=== PATIENT | female | born 1990 | race Caucasian/White ===

== ENCOUNTER 2016-05-11 19:20 | Emergency (ER) | payer OTHER ==
[~2016-05-11] VITALS: Ht 162.6 cm; Wt 59.4 kg
[~2016-05-11 19:20] MED LIST: ALBINS/ INH; CITA40TA4 PO; DSY/150 PO; GDN40 PO; LEVO1TAB19 PO
[2016-05-11 19:25] VITALS: TEMP 37; Ht 162.6 cm; Wt 59.4 kg
[2016-05-11] MEDS ORDERED: SERT50TA PO (19:50)
[2016-05-11] MEDS ORDERED: OXYCODONE HCL IR 5 MG TAB (IMMEDIATE RELEASE) PO STA (20:08)
[2016-05-11] MEDS ORDERED: AMOXICILLIN 250 MG CAP PO STA (20:09)
[2016-05-11] MEDS ORDERED: AMOX500C3 PO (20:27)
--- NOTE | 2016-05-11 20:28 | EMERGENCY ROOM VISIT NOTE ---
ED Visit Note First contact with patient: 19:29 CHIEF COMPLAINT: Headache, sore throat, ear pain HISTORY OF PRESENT ILLNESS: This 26-year-old female presents to the emergency department ambulatory complaining of a right-sided headache, sore throat and her right ear popping. The patient reports that she has had the symptoms for the past several days. She states that she has pain in the right side of her mouth in the right side of her head. She rates the overall discomfort a 7/10. She reports associated nasal congestion. She has been taking ibuprofen and Tylenol without relief. She denies any neck pain/stiffness, chest pain, shortness of breath, cough, nausea or vomiting. She denies any fevers. REVIEW OF SYSTEMS: A 6 system review of systems was completed with positives and pertinent negatives listed in the HPI. ALLERGIES: Acetaminophen MEDICATIONS: See med list PMH:. Seasonal Allergies. SH: The patient lives locally with friends. She is a smoker. She denies alcohol use. PHYSICAL EXAM: Vital Signs: Reviewed Nurse's notes, temperature 37.0C orally. GENERAL: This is a 26-year-old female, in no acute distress, well-developed, well-nourished. SKIN: Normal. HEART: Regular rate and rhythm without murmurs gallops or rubs. LUNGS: Clear to auscultation and breath sounds equal, no wheezes, rales, or rhonchi. MOUTH: The pharynx is not inflamed and the tonsils are not enlarged. The airway is patent. EARS: The right tympanic membrane is mildly erythematous. The right external auditory canal is clear with no tragus tenderness. The left tympanic membrane is pearly crocker without erythema or effusion. The left external auditory canal is clear. LYMPH: There is no lymphadenopathy. NECK: Supple, no meningismus. ED COURSE: I examined the patient. Rapid strep swab was performed and was negative. She appears to have an early right otitis media. The patient will be placed on amoxicillin. She is complaining of right-sided headache which is likely secondary to the infection. She was given 1 tablet OxyIR here and instructed to take ibuprofen at home. The patient was instructed to follow-up with her primary care provider for further evaluation. She verbalized understanding and was discharged home in good condition. DIAGNOSIS: Acute otitis media of the right ear Problem List Medical Problems: (1) ADHD (attention deficit hyperactivity disorder) Status: Chronic (2) Asthma Status: Chronic Surgical Problems: (1) No pertinent past surgical history Status: Chronic Current/Historical Medications Scheduled Diphenhydramine Hcl (Allergy Relief), 25 MG PO DAILY Sertraline (Zoloft), 50 MG PO QAM Trazodone HCl (Trazodone HCl), 300 MG PO HS Scheduled PRN Albuterol Sulf (Proventil 0.083% 2.5MG/3ML), 2.5 MG INH Q4H PRN for Wheezing Ipratropium-Albuterol (Combivent Respimat), 2 PUFFS INH QID PRN for SOB/Wheezing Allergies Coded Allergies: Acetaminophen (Verified Allergy, Severe, HIVES/HARD TO BREATHE, 05/11/16) DOES NOT AFFECT HER IN COMBINATION MED LIKE PERCOCET. Vital Signs Date Time Temp Pulse Resp B/P Pulse Ox O2 Delivery O2 Flow Rate FiO2 05/11/16 19:27 97 Room Air 05/11/16 19:25 37.0 102 18 131/91 97 Room Air Medications Administered Medications (Trade) Dose Ordered Sig/Tom Route Start Time Stop Time Status Last Admin Dose Admin Oxycodone HCl (Roxicodone Immediate Rel Tab) 5 mg NOW STAT PO 05/11/16 20:08 05/11/16 20:10 DC 05/11/16 20:15 5 MG Amoxicillin (Amoxil Cap) 500 mg NOW STAT PO 05/11/16 20:09 05/11/16 20:11 DC 05/11/16 20:15 500 MG Departure Information Impression Primary Impression: Otitis media Dispostion Home / Self-Care Condition GOOD Prescriptions Amoxicillin (AMOXIL) 500 Mg Cap 1 CAP PO TID for 7 Days, #21 CAP Prov: Alyce Zapien PA-C 05/11/16 Referrals No Doctor, Assigned (PCP) Patient Instructions My [facility] Additional Instructions You have been treated in the Emergency Department for an Inner Ear Infection ( Otitis Media). You were prescribed amoxicillin to be taken 3 times daily as prescribed. This is an antibiotic. All antibiotics have the potential to cause diarrhea. Stop this medication and contact a medical provider if you were to develop any significant adverse side effects including: wheezing, shortness of breath, passing out, vomiting, or a diffuse rash. Always take antibiotics as directed and COMPLETE the ENTIRE course regardless of the improvement of your symptoms. For pain and fever control, you can use the following [id number] medicines (if >12 yo): - Regular strength (325mg/tab) Tylenol (acetaminophen) 2 tabs every 4-6 hours as needed. Do not exceed 12 tablets in a 24 hour period. Avoid taking more than 4 grams (4000 mg) of Tylenol per day. This includes any other sources of acetaminophen you may take on a regular basis. - Regular strength (200 mg/tab) Advil (ibuprofen) 1-2 tabs every 4-6 hours as needed. Do not exceed a dose of 3200 mg per day. You should follow-up with your Primary Care Provider from today's Emergency Department visit. Return to the emergency department if you develop the following symptoms despite treatment course outlined above: headache, fever, intractable pain, increased redness, swelling, or purulent discharge. Problem Qualifiers Primary Impression: Otitis media Otitis media type: unspecified Laterality: right Chronicity: unspecified Qualified Codes: H66.91 - Otitis media, unspecified, right ear
--- NOTE | 2016-05-11 20:35 | EMERGENCY ROOM VISIT NOTE ---
ED Visit Note First contact with patient: 19:29 I have seen and examined this patient with Alyce Zapien and generally agree with the treatment plan as discussed. Problem List Medical Problems: (1) ADHD (attention deficit hyperactivity disorder) Status: Chronic (2) Asthma Status: Chronic Surgical Problems: (1) No pertinent past surgical history Status: Chronic Current/Historical Medications Scheduled Amoxicillin (Amoxil), 1 CAP PO TID Diphenhydramine Hcl (Allergy Relief), 25 MG PO DAILY Sertraline (Zoloft), 50 MG PO QAM Trazodone HCl (Trazodone HCl), 300 MG PO HS Scheduled PRN Albuterol Sulf (Proventil 0.083% 2.5MG/3ML), 2.5 MG INH Q4H PRN for Wheezing Ipratropium-Albuterol (Combivent Respimat), 2 PUFFS INH QID PRN for SOB/Wheezing Allergies Coded Allergies: Acetaminophen (Verified Allergy, Severe, HIVES/HARD TO BREATHE, 05/11/16) DOES NOT AFFECT HER IN COMBINATION MED LIKE PERCOCET. Vital Signs Date Time Temp Pulse Resp B/P Pulse Ox O2 Delivery O2 Flow Rate FiO2 05/11/16 19:27 97 Room Air 05/11/16 19:25 37.0 102 18 131/91 97 Room Air Medications Administered Medications (Trade) Dose Ordered Sig/Tom Route Start Time Stop Time Status Last Admin Dose Admin Oxycodone HCl (Roxicodone Immediate Rel Tab) 5 mg NOW STAT PO 05/11/16 20:08 05/11/16 20:10 DC 05/11/16 20:15 5 MG Amoxicillin (Amoxil Cap) 500 mg NOW STAT PO 05/11/16 20:09 05/11/16 20:11 DC 05/11/16 20:15 500 MG Departure Information Impression Primary Impression: Otitis media Dispostion Home / Self-Care Condition GOOD Prescriptions Amoxicillin (AMOXIL) 500 Mg Cap 1 CAP PO TID for 7 Days, #21 CAP Prov: Alyce Zapien ., JOEY 05/11/16 Referrals No Doctor, Assigned (PCP) Forms HOME CARE DOCUMENTATION FORM, IMPORTANT VISIT INFORMATION Patient Instructions My [facility] Additional Instructions You have been treated in the Emergency Department for an Inner Ear Infection ( Otitis Media). You were prescribed amoxicillin to be taken 3 times daily as prescribed. This is an antibiotic. All antibiotics have the potential to cause diarrhea. Stop this medication and contact a medical provider if you were to develop any significant adverse side effects including: wheezing, shortness of breath, passing out, vomiting, or a diffuse rash. Always take antibiotics as directed and COMPLETE the ENTIRE course regardless of the improvement of your symptoms. For pain and fever control, you can use the following [id number] medicines (if >12 yo): - Regular strength (325mg/tab) Tylenol (acetaminophen) 2 tabs every 4-6 hours as needed. Do not exceed 12 tablets in a 24 hour period. Avoid taking more than 4 grams (4000 mg) of Tylenol per day. This includes any other sources of acetaminophen you may take on a regular basis. - Regular strength (200 mg/tab) Advil (ibuprofen) 1-2 tabs every 4-6 hours as needed. Do not exceed a dose of 3200 mg per day. You should follow-up with your Primary Care Provider from today's Emergency Department visit. Return to the emergency department if you develop the following symptoms despite treatment course outlined above: headache, fever, intractable pain, increased redness, swelling, or purulent discharge.
[2016-05-11 20:39] VITALS: BP 121/97; PULSE 78; O2SAT 98
[2016-09-14] MEDS ORDERED: VENL37.593 PO (16:09)
[2016-09-14] MEDS ORDERED: ATOM40CA5 PO (16:09)
== END 2016-05-11 20:34 | disposition home or self-care (01) ==
LOC: C.EDB 19:21 → C.EDD 20:34
DX: H66.91 Otitis media, unspecified, right ear (principal); F90.9 Attention-deficit hyperactivity disorder, unspecified type; J45.909 Unspecified asthma, uncomplicated; F17.200 Nicotine dependence, unspecified, uncomplicated; Z88.6 Allergy status to analgesic agent; Z79.899 Other long term (current) drug therapy

== ENCOUNTER 2016-09-17 15:54 | Emergency (ER) | payer OTHER ==
[~2016-09-17] VITALS: Ht 160 cm; Wt 55.0 kg
[~2016-09-17 15:54] MED LIST changes: +ATOM40CA5 PO; -CITA40TA4 PO; -GDN40 PO; -LEVO1TAB19 PO; +SERT50TA PO; +VENL37.593 PO
[2016-09-17 16:02] VITALS: Ht 160 cm; Wt 55.0 kg
[2016-09-17] MEDS ORDERED: KETOROLAC TROMETHAMINE 60 MG/2 ML VIAL IM STA (16:19)
[2016-09-17] MEDS ORDERED: CTF50 PO (16:26)
--- NOTE | 2016-09-17 16:32 | EMERGENCY ROOM VISIT NOTE ---
ED Visit Note First contact with patient: 16:04 CHIEF COMPLAINT: bilateral facial pain/dental pain, chronic right knee pain HISTORY OF PRESENT ILLNESS: This 6-year-old female patient presented to the emergency department alone with a progressive toothache for the past week. The patient believes it is coming from all of her teeth. The pain is now steady and severe and radiates to the face. Patient reports feeling that her teeth are clicking while chewing or topping on them. She states she has been able to eat soft foods, however hard foods make the pain worse. Patient does report headache. She states she only gets relief from pain while sleeping. The patient does not have a dentist appointment set up because she is unable to pay $46 required by the dentist her. Patient states she did call a dentist earlier this week, however was unable to come up with the money. They rate their pain as constant and an 8/10 and the ibuprofen and other OTC pain medications they have been taking has not relieved the pain. Denies facial swelling or fever. The patient denies any discharge from the mouth. Patient also reports chronic right knee pain, which she states is "acting up." Patient denies recent injury, fall, twisting, other precipitating factor. She states this pain has been going on for several years, which began when her knee "popped out of place" she worked for the [employer]. Patient states the pain hurts when she bends it, especially while sitting, however she continues to this motion consistently and is sitting in the way in the emergency department. Patient states when she standing, she feels the pain gets worse, and states it throbs while walking. She states pain also is worse on palpation. She rates this pain as 6/10 sharp, however states that only occurs occasionally and lasts for a few minutes at most. Patient denies redness, swelling. REVIEW OF SYSTEMS: A 6 system review of systems was completed with positives and pertinent negatives listed in the HPI. ALLERGIES: Acetaminophen MEDICATIONS: Effexor, albuterol, Combivent, Benadryl, trazodone, sertraline PMH: Anxiety, depression, seasonal allergies and asthma SOCIAL HISTORY: Patient lives locally with her family. She reports smoking 1 pack per day. Patient denies alcohol or drug use. PHYSICAL EXAM: Vitals are noted on the nurse's note and reviewed by myself. Vital signs stable. Temperature 36.8C orally. GENERAL: 26-year-old female, in no acute distress, appears to be sitting comfortably on the bed, nondiaphoretic, well-developed well-nourished. Mouth: Pt. does not have any molars in her mouth. All other teeth are very carious, however, the gum is not swollen, but is tender around it, without any discharge or signs of an abscess. The remainder of the pharynx and tonsils are without erythema, edema, or exudate. The airway is patent. There is no facial swelling, cervical or submandibular lymphadenopathy. The patient has overall very poor dental hygiene. EARS: External auditory canals clear, tympanic membranes pearly crocker without erythema or effusion bilaterally. MUSCULOSKELETAL: The right knee is not swollen. There is no ecchymosis. There is no joint effusion present. The patient is tender on palpation of the entire knee. Unable to locate specific point of tenderness. There is no specific joint line tenderness. The patella does subluxate. Range of motion is normal. Strength of the quads and hamstrings is 5/5. Antonietta's is negative. Bryson's and Anterior Drawer tests are negative , however patient complains of pain with these tests. There is discomfort with varus and valgus stressing. The foot and toes are warm and well-perfused. Dorsalis pedis pulse 2+. Sensation to pain and light touch is intact. Capillary refill less than 2 seconds. ED COURSE: Pt. was seen and evaluated as above. Discussion with patient regarding the importance of seeing a dentist. I also discussed with the patient importance of having a PCP to discuss chronic problems with. Patient was provided with 60 mg Toradol IM in the emergency department with moderate relief of pain. Discussion with patient regarding pain management. I also discussed with the patient benefits of x-ray of right knee. I discussed with her about with no new injury, it is unlikely x-rays which show anything which would change the course of care. Patient declines x-ray at this time. She states she will follow-up with a PCP regarding chronic knee pain. Patient was discharged home in good condition. DIAGNOSIS: Odontalgia, chronic right knee pain DIFFERENTIAL DIAGNOSIS: dental abscess, TMJ, Acute sinusitis, Acute otitis media , meniscal tear, ACL, PCL, LCL, MCL injury or tear, osteoarthritis, and others. DISCHARGE INSTRUCTIONS & TREATMENT: You have been treated in the Emergency Department for Dental Pain and knee pain You have been prescribed diclofenac to be used for pain control. Do not take this medication with any other NSAIDs including Aleve, ibuprofen, naproxen, Motrin, Advil. Refrain from smoking cigarettes or using chewing tobacco until you have been evaluated by your dentist. Keeping beverages lukewarm and consuming soft foods can decrease your pain. Warm compresses over the affected area may offer some relief. You MUST seek evaluation of your dental pain by a dentist following your visit to the Emergency Department. The Emergency Department is not capable of treating dental issues long-term. You should call your dentist as soon as possible to make an appointment for evaluation of your dental pain. Return to the emergency department if you develop the following symptoms despite treatment course outlined above: fever, intractable pain, increased redness, swelling, or purulent discharge. You have been treated in the Emergency Department for your chronic knee pain: Ice can be applied to the area of pain to help decrease pain and inflammation. Ice massages can be performed by freezing water in a paper cup, peeling back the cup to expose the ice and then massaging over the affected area. You may use fish oil tablets, 2000 mg twice daily to help lubricate the joint and attempt to offer some pain relief. You have been provided the number for an Orthopaedic Surgeon. You should call this number, or follow-up with a PCP as soon as possible to establish a follow- up visit from today's Emergency Department visit. Return to the Emergency Department if your current symptoms worsen despite treatment course outlined above. Problem List Medical Problems: (1) ADHD (attention deficit hyperactivity disorder) Status: Chronic (2) Asthma Status: Chronic Surgical Problems: (1) No pertinent past surgical history Status: Chronic Current/Historical Medications Scheduled Atomoxetine HCl (Atomoxetine), 1 CAP PO QAM Diphenhydramine Hcl (Allergy Relief), 25 MG PO DAILY Sertraline (Zoloft), 50 MG PO QAM Trazodone HCl (Trazodone HCl), 300 MG PO HS Venlafaxine Hcl (Venlafaxine Extended Rel), 1 CAP PO QAM Scheduled PRN Albuterol Sulf (Proventil 0.083% 2.5MG/3ML), 2.5 MG INH Q4H PRN for Wheezing Diclofenac Potassium (Diclofenac Potassium), 1 TAB PO BID PRN for Pain Ipratropium-Albuterol (Combivent Respimat), 2 PUFFS INH QID PRN for SOB/Wheezing Allergies Coded Allergies: Acetaminophen (Verified Allergy, Severe, HIVES/HARD TO BREATHE, 09/17/16) DOES NOT AFFECT HER IN COMBINATION MED LIKE PERCOCET. Vital Signs Date Time Temp Pulse Resp B/P (MAP) Pulse Ox O2 Delivery O2 Flow Rate FiO2 09/17/16 16:56 36.8 73 18 128/88 99 09/17/16 16:02 36.8 73 18 128/88 99 Room Air Medications Administered Medications (Trade) Dose Ordered Sig/Tom Route Start Time Stop Time Status Last Admin Dose Admin Ketorolac Tromethamine (Toradol Inj) 60 mg NOW STAT IM 09/17/16 16:19 09/17/16 16:20 DC 09/17/16 16:38 60 MG Departure Information Impression Primary Impression: Pain, dental Additional Impression: Chronic pain of right knee Dispostion Home / Self-Care Condition GOOD Prescriptions Diclofenac Potassium (DICLOFENAC POTASSIUM) 50 Mg Tab 1 TAB PO BID Y for Pain for 30 Days, #60 TAB 1 Refill Prov: Yoly Ceja, JOEY 09/17/16 Referrals No Doctor, Assigned (PCP) Jose Motley M.D. Patient Instructions ED Knee Pain [facility], ED Tooth Pain, [facility] Additional Instructions You have been treated in the Emergency Department for Dental Pain and knee pain You have been prescribed diclofenac to be used for pain control. Do not take this medication with any other NSAIDs including Aleve, ibuprofen, naproxen, Motrin, Advil. Refrain from smoking cigarettes or using chewing tobacco until you have been evaluated by your dentist. Keeping beverages lukewarm and consuming soft foods can decrease your pain. Warm compresses over the affected area may offer some relief. You MUST seek evaluation of your dental pain by a dentist following your visit to the Emergency Department. The Emergency Department is not capable of treating dental issues long-term. You should call your dentist as soon as possible to make an appointment for evaluation of your dental pain. Return to the emergency department if you develop the following symptoms despite treatment course outlined above: fever, intractable pain, increased redness, swelling, or purulent discharge. You have been treated in the Emergency Department for your chronic knee pain: Ice can be applied to the area of pain to help decrease pain and inflammation. Ice massages can be performed by freezing water in a paper cup, peeling back the cup to expose the ice and then massaging over the affected area. You may use fish oil tablets, 2000 mg twice daily to help lubricate the joint and attempt to offer some pain relief. You have been provided the number for an Orthopaedic Surgeon. You should call this number, or follow-up with a PCP as soon as possible to establish a follow- up visit from today's Emergency Department visit. Return to the Emergency Department if your current symptoms worsen despite treatment course outlined above. Problem Qualifiers
[2016-09-17 16:56] VITALS: BP 128/88; PULSE 73; TEMP 36.8; O2SAT 99
== END 2016-09-17 16:57 | disposition home or self-care (01) ==
LOC: C.EDB 15:55 → C.EDD 16:57
DX: K08.89 Other specified disorders of teeth and supporting structures (principal); G89.29 Other chronic pain; M25.561 Pain in right knee; F90.9 Attention-deficit hyperactivity disorder, unspecified type; F41.9 Anxiety disorder, unspecified; F32.9 Major depressive disorder, single episode, unspecified; J45.909 Unspecified asthma, uncomplicated; F17.200 Nicotine dependence, unspecified, uncomplicated; Z79.899 Other long term (current) drug therapy; Z88.6 Allergy status to analgesic agent

== ENCOUNTER 2016-10-04 21:31 | Emergency (ER) | payer OTHER ==
[~2016-10-04] VITALS: Ht 162.6 cm; Wt 54.3 kg
[~2016-10-04 21:31] MED LIST changes: +CTF50 PO
[2016-10-04 21:32] VITALS: TEMP 36.8; Ht 162.6 cm; Wt 54.3 kg
[2016-10-04] MEDS ORDERED: SODIUM CHLORIDE 0.9% 1000ML 1,000 ML IV STA (22:28)
[2016-10-04] MEDS ORDERED: SODIUM CHLORIDE 0.9% 1000ML 1,000 ML IV ONE (22:28)
[2016-10-04] MEDS ORDERED: KETOROLAC TROMETHAMINE 30 MG/ML VIAL IV STA (22:28)
--- NOTE | 2016-10-04 22:29 | EMERGENCY ROOM VISIT NOTE ---
History Report prepared by Chester: Susan Ch Under the Supervision of: Dr. Kaushik Combs M.D. First contact with patient: 21:51 Chief Complaint: ABDOMINAL PAIN Stated Complaint: CHEST PAIN Nursing Triage Summary: Pain right upper abdomen, radiates to right ribs/shoulders, "chest feels like it's going to explode". Has not been eating since yesterday when symptoms started. Has been having problems eating for weeks. No dysuria or bowel irregularities. History of Present Illness The patient is a 26 year old female who presents to the Emergency Room with complaints of constant RUQ abdominal pain and tightness beginning yesterday. The patient states that she is having RUQ abdominal pain under her breast that radiates into her right shoulder. She reports that she has been feeling lightheaded and heaviness in the right side of her body. She complains of chills and feeling hot. The patient denies any fever, shortness of breath, injury, urinary symptoms, nausea, vomiting, bloody stool, black stool, and chance of . She notes that her LNMP was 1 month ago and she took a test and it was negative. The patient rates her pain as an 8/10 in severity. She notes that laying on her right side worsens the pain. The patient states that she had epigastric tightness 1 month ago but has not had an episode since. She reports that she did lift a couch the other day and is wondering if that is the cause of her right sided heaviness. She notes that she has asthma and has been wheezing lately. Source of History: patient Onset: yesterday Position: abdomen (RUQ) Quality: other (tightness) Timing: constant Modifying Factors (Worsening): other (laying on right side) Associated Symptoms: + chills, No fevers, No SOB, No nausea, No vomiting, No melena, No urinary symptoms, No rash Review of Systems See HPI for pertinent positives & negatives. A total of 10 systems reviewed and were otherwise negative. Past Medical & Surgical Medical Problems: (1) ADHD (attention deficit hyperactivity disorder) (2) Asthma (3) SOB (shortness of breath) Surgical Problems: (1) No pertinent past surgical history Old medical records were reviewed. Nurse's notes were reviewed and I agree with. Family History Glaucoma Social History Smoking Status: Current Every Day Smoker Alcohol Use: none Drug Use: none Marital Status: single Housing Status: lives with friends Occupation Status: unemployed Current/Historical Medications Scheduled Atomoxetine HCl (Atomoxetine), 1 CAP PO QAM Diphenhydramine Hcl (Allergy Relief), 25 MG PO DAILY Sertraline (Zoloft), 50 MG PO QAM Trazodone HCl (Trazodone HCl), 300 MG PO HS Venlafaxine Hcl (Venlafaxine Extended Rel), 1 CAP PO QAM Scheduled PRN Albuterol Sulf (Proventil 0.083% 2.5MG/3ML), 2.5 MG INH Q4H PRN for Wheezing Diclofenac Potassium (Diclofenac Potassium), 1 TAB PO BID PRN for Pain Ipratropium-Albuterol (Combivent Respimat), 2 PUFFS INH QID PRN for SOB/Wheezing Oxycodone Immediate Rel Tab (Roxicodone Ir), 1 TAB PO Q6 PRN for Severe Pain Allergies Coded Allergies: Acetaminophen (Verified Allergy, Severe, HIVES/HARD TO BREATHE, 10/04/16) DOES NOT AFFECT HER IN COMBINATION MED LIKE PERCOCET. Physical Exam Vital Signs Date Time Temp Pulse Resp B/P (MAP) Pulse Ox O2 Delivery O2 Flow Rate FiO2 10/05/16 00:44 65 20 114/86 98 10/04/16 21:32 36.8 76 18 141/82 98 Room Air Physical Exam General: Well developed well nourished non-ill appearing young female in no acute distress, breathing comfortably on room air. Normal speech HEENT: Normal cephalic atraumatic. Pupils are equal round and reactive to light. Extraocular movements are intact. Oropharynx is pink with moist mucous membranes. No swelling of the mouth lips or tongue. Neck: Supple with a midline trachea. No meningeal signs or stiffness, no JVD or bruits. No Stridor. Chest: Clear to auscultation bilaterally. No wheezes or rhonchi. No increased work of breathing. Heart: regular rate and rhythm. Abdomen: Soft, nondistended without rebound guarding or rigidity. Mildly tender in the right lower rib cage, right upper abdomen. No rebound, guarding, or rigidity no lower abdominal tenderness. Extremities: No cyanosis clubbing or edema. No calf tenderness or assymetry Spine/Back. Non tender to palpation. No CVA tenderness Skin: Good turgor without rashes. Neurologic exam: Cranial nerves two through 12 are intact. Motor and sensation are intact and symmetrical throughout. Medical Decision & Procedures ER Provider Diagnostic Interpretation: Radiology results as stated below per my review: Chest x-ray per my interpretation reveals no pneumothorax, failure, or infiltrate. Laboratory Results 10/04/16 22:50 Red Blood Count 4.91, Mean Corpuscular Volume 92.3, Mean Corpuscular Hemoglobin 32.6, Mean Corpuscular Hemoglobin Concent 35.3, Mean Platelet Volume 11.0, Neutrophils (%) (Auto) 65.2, Lymphocytes (%) (Auto) 26.4, Monocytes (%) (Auto) 6.6, Eosinophils (%) (Auto) 1.3, Basophils (%) (Auto) 0.3, Neutrophils # (Auto) 6.70, Lymphocytes # (Auto) 2.71, Monocytes # (Auto) 0.68, Eosinophils # (Auto) 0.13, Basophils # (Auto) 0.03 10/04/16 22:50 Test 10/04/16 21:55 10/04/16 22:50 Urine Color YELLOW Urine Appearance CLEAR (CLEAR) Urine pH 6.5 (4.5-7.5) Urine Specific [place] 1.005 (1.000-1.030) Urine Protein NEG (NEG) Urine Glucose (UA) NEG (NEG) Urine Ketones NEG (NEG) Urine Occult Blood NEG (NEG) Urine Nitrite NEG (NEG) Urine Bilirubin NEG (NEG) Urine Urobilinogen NEG (NEG) Urine Leukocyte Esterase NEG (NEG) White Blood Count 10.27 K/uL (4.8-10.8) Red Blood Count 4.91 M/uL (4.2-5.4) Hemoglobin 16.0 g/dL (12.0-16.0) Hematocrit 45.3 % (37-47) Mean Corpuscular Volume 92.3 fL (80-100) Mean Corpuscular Hemoglobin 32.6 pg (25-34) Mean Corpuscular Hemoglobin Concent 35.3 g/dl (32-36) Platelet Count 293 K/uL (130-400) Mean Platelet Volume 11.0 fL (7.4-10.4) Neutrophils (%) (Auto) 65.2 % Lymphocytes (%) (Auto) 26.4 % Monocytes (%) (Auto) 6.6 % Eosinophils (%) (Auto) 1.3 % Basophils (%) (Auto) 0.3 % Neutrophils # (Auto) 6.70 K/uL (1.4-6.5) Lymphocytes # (Auto) 2.71 K/uL (1.2-3.4) Monocytes # (Auto) 0.68 K/uL (0.11-0.59) Eosinophils # (Auto) 0.13 K/uL (0-0.5) Basophils # (Auto) 0.03 K/uL (0-0.2) RDW Standard Deviation 43.5 fL (36.4-46.3) RDW Coefficient of Variation 12.9 % (11.5-14.5) Immature Granulocyte % (Auto) 0.2 % Immature Granulocyte # (Auto) 0.02 K/uL (0.00-0.02) Anion Gap 8.0 mmol/L (3-11) Est Creatinine Clear Calc Drug Dose 91.0 ml/min Estimated GFR () 117.0 Estimated GFR (Non- 100.9 BUN/Creatinine Ratio 6.2 (10-20) Calcium Level 9.7 mg/dl (8.5-10.1) Total Bilirubin 0.3 mg/dl (0.2-1) Direct Bilirubin < 0.1 mg/dl (0-0.2) Aspartate Amino Transf (AST/SGOT) 12 U/L (15-37) Alanine Aminotransferase (ALT/SGPT) 22 U/L (12-78) Alkaline Phosphatase 58 U/L (45-117) Total Protein 8.3 gm/dl (6.4-8.2) Albumin 5.0 gm/dl (3.4-5.0) Lipase 142 U/L (73-393) Human Chorionic Gonadotropin, Qual NEG (NEG) Laboratory studies as stated above per my review. Medications Administered Medications (Trade) Dose Ordered Sig/Tom Route Start Time Stop Time Status Last Admin Dose Admin Sodium Chloride 1,000 ml @ 999 mls/hr Q1H1M STAT IV 10/04/16 22:28 10/04/16 23:28 DC 10/04/16 22:56 999 MLS/HR Sodium Chloride 1,000 ml @ 150 mls/hr Q6H40M ONCE IV 10/04/16 22:28 10/05/16 05:07 10/04/16 23:07 150 MLS/HR Ketorolac Tromethamine (Toradol Inj) 30 mg NOW STAT IV 10/04/16 22:28 10/04/16 22:30 DC 10/04/16 22:56 30 MG Oxycodone HCl (Roxicodone Immediate Rel 5MG Home Pack) 1 homepack UD ONCE PO 10/05/16 00:30 10/05/16 00:31 DC 10/05/16 00:42 1 HOMEPACK ECG Indication: abdominal pain Rate (beats per minute): 68 Rhythm: normal sinus Findings: no acute ischemic change, no ectopy Comparison ECG Date: 01/12/16 Change: no significant change ED Course 2150: Past medical records reviewed. The patient was evaluated in room B12B, and a complete history and physical examination were performed. 2228: Toradol Inj 30mg IV, Sodium Chloride 1000 ml @ 150 mls/hr IV, Sodium Chloride 1000 ml @ 999 mls/hr IV. 2327: I reevaluated the patient and she is resting comfortably. 0017: I reevaluated and updated the patient. 0029: I spoke to the patient and she would like to be discharged without her ultrasound. I think this is reasonable. 0030: Oxycodone HCl 1 homepack PO. 0032: Upon reevaluation, the patient is doing well. I discussed the results and treatment plan with the patient. She verbalized agreement of the treatment plan. The patient was discharged home. Medical Decision Differential diagnosis includes cholecystitis, pancreatitis, GERD, PE, . This patient comes in as described above. She was placed in room B12. She's having pain in her right upper abdomen right lower chest. She looks well on exam . She's not hypoxemic. She has no rash. Chest x-ray was obtained and does not show any pneumothorax or CHF. EKG does not suggest acute coronary syndrome or arrhythmia. She's had no white count or fever to suggest infection. She has no acute electrolyte or metabolic abnormality. She is not . She was given Toradol 30 mg IV. She is feeling much better. EKG does not suggest acute coronary syndrome. Her cardiac enzymes are not elevated. D-dimer is within normal limits and and a low pretest probability makes PE highly unlikely . She has no acute electrolyte or metabolic abnormalities. She has nothing to suggest liver or gallbladder pancreas disease based on blood work. Her tenderness is actually more along the ribs and I do not think is likely gallbladder . I did order an ultrasound however the patient wanted to go home as she was tired of waiting here, I think this is reasonable and is on think that it is unlikely acute cholecystitis or gallbladder causing her symptoms. She was given a home pack of OxyIR as well as a small prescription for pain. She was warned that this can make her drowsy and do not take before drinking, driving, working. I encouraged to follow-up with her regular doctor this week for recheck or return in the meantime if fever or chills, worsening of symptoms, any new problems or concerns. Medication Reconciliation: I attest that I have personally reviewed the patient' s current medication list. Blood pressure Screening: Patient was found to have normal blood pressure on screening and does not require follow-up. [place] Drug Monitoring Program Search Results: patient reviewed within database Impression Primary Impression: RUQ abdominal pain Additional Impression: Right-sided chest pain Scribe Attestation The scribe's documentation has been prepared under my direction and personally reviewed by me in its entirety. I confirm that the note above accurately reflects all work, treatment, procedures, and medical decision making performed by me. Departure Information Dispostion Home / Self-Care Prescriptions Oxycodone Immediate Rel Tab (ROXICODONE IR) 5 Mg Tab 1 TAB PO Q6 Y for Severe Pain, #14 TAB Prov: Kaushik Combs M.D. 10/05/16 Referrals No Doctor, Assigned (PCP) Forms HOME CARE DOCUMENTATION FORM, IMPORTANT VISIT INFORMATION Patient Instructions [facility] Additional Instructions Rest. Drink plenty of fluids. Continue use ibuprofen 400 mg every 6 hours, take with food For more severe pain may use OxyIR 5 mg, 1 pill every 6 hours as needed OxyIR may make you drowsy do not take before drinking, driving, working Return if: Increasing pain, worsening of symptoms, fever or chills, any new problems or concerns Follow-up with your doctor in next 1-2 days for recheck if not better. You may ultimately ultrasound her gallbladder symptoms persist or worsen Problem Qualifiers
[2016-10-04 23:00] LABS: BASO % 0.3 %; BASO ABS # 0.03 K/uL (0-0.2); COMPLETE YES; EOS % 1.3 %; HEMATOCRIT 45.3 % (37-47); IG% 0.2 %; LYMPH % 26.4 %; LYMPH ABS # 2.71 K/uL (1.2-3.4); MEAN CELL VOLUME 92.3 fL (80-100); MEAN CORPUSCULAR HEMOGLOBIN 32.6 pg (25-34); MEAN CORPUSCULAR HGB CONC 35.3 g/dl (32-36); MONO % 6.6 %; NEUT % 65.2 %; PLATELET COUNT 293 K/uL (130-400); RED BLOOD COUNT 4.91 M/uL (4.2-5.4); WHITE BLOOD COUNT 10.27 K/uL (4.8-10.8)
[2016-10-04 23:20] LABS: ALT/SGPT 22 U/L (12-78); AST/SGOT 12 U/L (15-37); BLOOD UREA NITROGEN 5 mg/dl (7-18); BUN/CREATININE RATIO 6.2 (10-20); CALCIUM 9.7 mg/dl (8.5-10.1); CARBON DIOXIDE 27 mmol/L (21-32); CHLORIDE 105 mmol/L (98-107); CREATININE 0.81 mg/dl (0.60-1.20); GLUCOSE 96 mg/dl (70-99); POTASSIUM 3.6 mmol/L (3.5-5.1); SODIUM 140 mmol/L (136-145)
[2016-10-04 23:23] LABS: ALKALINE PHOSPHATASE 58 U/L (45-117)
[2016-10-04 23:24] LABS: PREG INTERNAL NEGATIVE QC NEG CLEAR BACKGROUND; PREG INTERNAL POSITIVE QC POS CONTROL LINE
[2016-10-04 23:33] LABS: URINE APPEARANCE CLEAR (CLEAR); URINE BILIRUBIN NEG (NEG); URINE COLOR YELLOW; URINE NITRITE NEG (NEG); URINE PH 6.5 (4.5-7.5); URINE SPECIFIC GRAVITY 1.005 (1.000-1.030); UROBILINOGEN NEG (NEG)
[2016-10-04 23:39] LABS: MANUAL MICROSCOPIC REQUIRED? NO; REVIEW REQ? NO
[2016-10-05] MEDS ORDERED: OXYC1TAB3 PO (00:26)
[2016-10-05] MEDS ORDERED: OXYCODONE IR HOME PACK PO ONE (00:30)
[2016-10-05 00:44] VITALS: BP 114/86; PULSE 65; O2SAT 98
--- NOTE | 2016-10-05 06:35 | DIAGNOSTIC IMAGING REPORT ---
CHEST ONE VIEW PORTABLE HISTORY:26 yearsFemaleCHEST PAIN COMPARISON: 01/14/2016 TECHNIQUE: Portable upright AP view of the chest FINDINGS: Cardiomediastinal and hilar silhouettes are within normal limits there is no pneumothorax, pleural effusion or focal airspace consolidation. The bones are grossly intact. IMPRESSION: No acute cardiopulmonary process. The above report was generated using voice recognition software. It may contain grammatical, syntax or spelling errors. Electronically signed by: Yaw Peck 10/05/2016 6:34 AM Dictated Date/Time: 10/05/2016 6:32 AM
[2016-10-05 10:54] LABS: POINT OF CARE TROPONIN I < 0.030 ng/ml (0-0.045)
== END 2016-10-05 00:45 | disposition home or self-care (01) ==
LOC: C.EDB 21:32
DX: R10.11 Right upper quadrant pain (principal); R07.9 Chest pain, unspecified; R42 Dizziness and giddiness; F90.9 Attention-deficit hyperactivity disorder, unspecified type; J45.909 Unspecified asthma, uncomplicated; F17.210 Nicotine dependence, cigarettes, uncomplicated; Z79.899 Other long term (current) drug therapy

== ENCOUNTER 2016-10-18 21:49 | Emergency (ER) | payer OTHER ==
[~2016-10-18] VITALS: Ht 162.6 cm; Wt 55.7 kg
[~2016-10-18 21:49] MED LIST changes: +OXYC1TAB3 PO
[2016-10-18 22:04] VITALS: TEMP 36.8; Ht 162.6 cm; Wt 55.7 kg
[2016-10-18] MEDS ORDERED: DICLOFENAC SOD 25 MG TABEC PO STA (22:29)
[2016-10-18] MEDS ORDERED: PENICILLIN V POTASSIUM 250 MG TAB PO ONE (22:30)
--- NOTE | 2016-10-18 22:34 | EMERGENCY ROOM VISIT NOTE ---
History Report prepared by Chester: Ben Lizarraga Under the Supervision of: Dr. Mk Patterson M.D. First contact with patient: 22:20 Chief Complaint: ANKLE PAIN Stated Complaint: ANKLE,R KNEE, DENTAL, SOME EATING PROBLEMS History of Present Illness The patient is a 26 year old female who presents to the Emergency Room with complaints of persistent pain in the right ankle, after "rolling" the ankle on Wednesday, two days prior to arrival. The patient states that she was walking down a hill when she twisted and inverted the ankle. Her ankle and foot hurt now when weight is applied. She is also complaining of pain and tightness in the right knee. The patient complains of worsening dental pain across multiple teeth. She notes that her gums are red and painful. She is waiting until November to see her dentist due to insurance coverage. Source of History: patient Onset: Two days [employer] Position: ankle (right) Timing: other (Persistent) Modifying Factors (Worsening): other (applying weight) Note: Dental Pain Review of Systems See HPI for pertinent positives & negatives. A total of 10 systems reviewed and were otherwise negative. Past Medical & Surgical Medical Problems: (1) ADHD (attention deficit hyperactivity disorder) (2) Asthma (3) SOB (shortness of breath) Surgical Problems: (1) No pertinent past surgical history Family History Glaucoma Social History Smoking Status: Current Every Day Smoker Alcohol Use: none Drug Use: none Marital Status: single Housing Status: lives with friends Occupation Status: unemployed Current/Historical Medications Scheduled Atomoxetine HCl (Atomoxetine), 1 CAP PO QAM Diclofenac Sod (Voltaren), 1 TAB PO BID Diphenhydramine Hcl (Allergy Relief), 25 MG PO DAILY Penicillin V Potassium (Veetids), 500 MG PO QID Sertraline (Zoloft), 50 MG PO QAM Trazodone HCl (Trazodone HCl), 300 MG PO HS Venlafaxine Hcl (Venlafaxine Extended Rel), 1 CAP PO QAM Scheduled PRN Albuterol Sulf (Proventil 0.083% 2.5MG/3ML), 2.5 MG INH Q4H PRN for Wheezing Diclofenac (Voltaren), 50 MG PO BID PRN for Pain Ipratropium-Albuterol (Combivent Respimat), 2 PUFFS INH QID PRN for SOB/Wheezing Oxycodone Immediate Rel Tab (Roxicodone Ir), 5 MG PO Q6H PRN for Pain Allergies Coded Allergies: Acetaminophen (Verified Allergy, Severe, HIVES/HARD TO BREATHE, 10/18/16) DOES NOT AFFECT HER IN COMBINATION MED LIKE PERCOCET. Physical Exam Vital Signs Date Time Temp Pulse Resp B/P (MAP) Pulse Ox O2 Delivery O2 Flow Rate FiO2 10/18/16 22:04 36.8 80 18 129/82 99 Room Air Physical Exam GENERAL: Patient is in no acute distress. HEENT: No acute trauma, normocephalic atraumatic, mucous membranes moist, no nasal congestion, no scleral icterus. Poor dentition appreciated. Multiple dental caries are present, no drainable abscesses. No throat erythema or exudate. NECK: No stridor, no adenopathy, no meningismus, trachea is midline. LUNGS: Clear to auscultation bilaterally, no wheeze, no rhonchi, breath sounds equal. HEART: Without murmurs gallops or rubs, regular rate and rhythm. ABDOMEN: Soft, nontender, bowel sounds positive, no hernias, no peritonitis. EXTREMITIES: There is mild tenderness over the ligaments of the lateral right ankle. The bones are non-tender, the right Achilles is non-tender and intact. There is no soft tissue swelling, right foot is non-tender. Right knee has some mild discomfort with ROM. No focal bony tenderness to the knee. No right knee joint effusion. NEUROLOGIC: Oriented x 3, no acute motor or sensory deficits, no focal weakness. SKIN: No rash, no jaundice, no diaphoresis. Medical Decision & Procedures Medications Administered Medications (Trade) Dose Ordered Sig/Tom Route Start Time Stop Time Status Last Admin Dose Admin Diclofenac Sodium (Voltaren Tab) 50 mg NOW STAT PO 10/18/16 22:29 10/18/16 22:32 DC 10/18/16 22:45 50 MG Penicillin V Potassium (Veetids Tab) 500 mg ONE ONCE PO 10/18/16 22:30 10/18/16 22:32 DC 10/18/16 22:41 500 MG ED Course 2221: The patient was evaluated in room B11. A complete history and physical exam was performed. 2228: Ordered Voltaren 50 mg PO, Penicillin V Potassium 500 mg PO. 2237: Reevaluated the patient. Discussed results and discharge instructions: She verbalized understanding and agreement. The patient is ready for discharge. Medical Decision Differential Diagnosis includes; Dental abscess, dental infection, pharyngitis, right knee or ankle sprain, right knee or ankle fracture. The patient presents with several complaints. She complains of right ankle pain since rolling the ankle a few days ago. On exam, there is no swelling, no focal bony discomfort. I felt the ankle was sprained. She complained of some right knee pain which apparently is somewhat chronic. There is no focal bony discomfort, there was no joint effusion and the knee seemed stable. In regard to the dental pain, the patient does have poor dentition. She has a dentist appointment in just over a month. I see no drainable abscess. She is not febrile and there is no pharyngitis. No evidence for swelling to the floor of the mouth. The patient was given oral penicillin, she'll be discharged on this medication. A gel splint was given for the ankle sprain. She was given Voltaren for discomfort. Patient was encouraged to follow with her doctors office, she was encouraged to see her dentist. If worsening, she can return. Impression Primary Impression: Right ankle sprain Additional Impression: Pain, dental Scribe Attestation The scribe's documentation has been prepared under my direction and personally reviewed by me in its entirety. I confirm that the note above accurately reflects all work, treatment, procedures, and medical decision making performed by me. Departure Information Dispostion Home / Self-Care Prescriptions Penicillin V Potassium (Veetids) 500 Mg Tab 500 MG PO QID, #40 TAB Prov: Mk Patterson M.D. 10/18/16 Diclofenac Sod (VOLTAREN) 50 Mg Tabcr 1 TAB PO BID for 15 Days, #30 TAB 1 Refill Prov: Mk Patterson M.D. 10/18/16 Referrals No Doctor, Assigned (PCP) Forms HOME CARE DOCUMENTATION FORM, IMPORTANT VISIT INFORMATION Patient Instructions [facility] Additional Instructions voltaren tab 2x per day for pain pen vk 4x per day for 10 days gel splint for comfort ice for swelling see dentist as scheduled return if worsening Problem Qualifiers
[2016-10-18] MEDS ORDERED: OXYC1TAB3 PO (22:36)
[2016-10-18] MEDS ORDERED: VLT/50 PO (22:38)
[2016-10-18] MEDS ORDERED: PENI-82 PO (22:38)
[2016-10-18 23:18] VITALS: BP 118/78; PULSE 76; O2SAT 96
== END 2016-10-18 23:23 | disposition home or self-care (01) ==
LOC: C.EDB 21:50
DX: S93.401A Sprain of unspecified ligament of right ankle, initial encounter (principal); K08.89 Other specified disorders of teeth and supporting structures; X50.1XXA Overexertion from prolonged static or awkward postures, initial encounter; Y93.01 Activity, walking, marching and hiking; Y99.8 Other external cause status; J45.909 Unspecified asthma, uncomplicated; F17.200 Nicotine dependence, unspecified, uncomplicated; Z83.511 Family history of glaucoma

== ENCOUNTER 2016-12-15 18:54 | Emergency (ER) | payer OTHER ==
[~2016-12-15] VITALS: Ht 162.6 cm; Wt 55.3 kg
[~2016-12-15 18:54] MED LIST changes: -ALBINS/ INH; -CTF50 PO; +PENI-82 PO; +VLT/50 PO
[2016-12-15 19:14] VITALS: TEMP 37.1; Ht 162.6 cm; Wt 55.3 kg
[2016-12-15] MEDS ORDERED: ESCI1TAB9 PO (19:50)
[2016-12-15] MEDS ORDERED: PENI-82 PO (20:00)
[2016-12-15] MEDS ORDERED: PENICILLIN HOME PACK 500MG (4 DOSES)BTL PO ONE (20:00)
--- NOTE | 2016-12-15 20:01 | EMERGENCY ROOM VISIT NOTE ---
ED Visit Note First contact with patient: 19:25 CHIEF COMPLAINT: Toothache HISTORY OF PRESENT ILLNESS: This 26-year-old female patient presented to the emergency department ambulatory complaining of pain in the mouth and sore throat. The patient states that she has had pain in multiple teeth for the past few weeks. She states it is difficult to eat. She has a dentist appointment set up next week. She does have a history of dental infections and has seen a dentist for this in the past. The patient also reports that she has had a sore throat for the past few days. She rates her overall discomfort a 9/ 10. She denies any fevers/chills or facial swelling. REVIEW OF SYSTEMS: A 6 system review of systems was completed with positives and pertinent negatives listed in the HPI. ALLERGIES: Acetaminophen MEDICATIONS: See med list PMH: Asthma SOCIAL HISTORY: The patient lives locally with family. She is a smoker. PHYSICAL EXAM: Vitals are noted on the nurse's note and reviewed by myself. Vital signs stable. Temperature 37.1C orally. GENERAL: This is a 26-year-old female, in no acute distress, nondiaphoretic, well-developed well-nourished. Mouth: The patient has multiple surgically absent teeth. There is decay of multiple of the remaining teeth. There is no swelling or tenderness of the gums. There is no evidence of a dental abscess. The remainder of the pharynx and tonsils are without erythema, edema, or exudate. The airway is patent. There is no facial swelling, cervical or submandibular lymphadenopathy. The patient appears uncomfortable and in pain. The patient has overall poor dental hygiene. EARS: External auditory canals clear, tympanic membranes pearly crocker without erythema or effusion bilaterally. ED COURSE: The patient was evaluated as above. She presents with dental pain and sore throat. She was prescribed penicillin for a presumed dental infection and advised to keep her follow-up with the dentist. There is no evidence of strep infection on exam. She was encouraged to use [id number] pain medications and avoid smoking. She verbalized understanding of my assessment and treatment plan and was discharged home in good condition. DIAGNOSIS: Odontalgia Problem List Medical Problems: (1) ADHD (attention deficit hyperactivity disorder) Status: Chronic (2) Asthma Status: Chronic Surgical Problems: (1) No pertinent past surgical history Status: Chronic Current/Historical Medications Scheduled Diphenhydramine Hcl (Allergy Relief), 25 MG PO DAILY Escitalopram Oxalate (Lexapro), 10 MG PO DAILY Penicillin V Potassium (Veetids), 500 MG PO QID Scheduled PRN Albuterol Sulf (Proventil 0.083% 2.5MG/3ML), 2.5 MG INH Q4H PRN for Wheezing Diclofenac (Voltaren), 50 MG PO BID PRN for Pain Ipratropium-Albuterol (Combivent Respimat), 2 PUFFS INH QID PRN for SOB/Wheezing Allergies Coded Allergies: Acetaminophen (Verified Allergy, Severe, HIVES/HARD TO BREATHE, 10/18/16) DOES NOT AFFECT HER IN COMBINATION MED LIKE PERCOCET. Vital Signs Date Time Temp Pulse Resp B/P (MAP) Pulse Ox O2 Delivery O2 Flow Rate FiO2 12/15/16 20:25 76 20 119/85 95 12/15/16 19:14 37.1 85 18 109/84 96 Room Air Medications Administered Medications (Trade) Dose Ordered Sig/Tom Route Start Time Stop Time Status Last Admin Dose Admin Penicillin V Potassium (Pen-Vk 500MG Home Pack) 1 homepack UD ONCE PO 12/15/16 20:00 12/15/16 20:01 DC 12/15/16 20:27 1 HOMEPACK Departure Information Impression Primary Impression: Dentalgia Dispostion Home / Self-Care Condition GOOD Prescriptions Penicillin V Potassium (Veetids) 500 Mg Tab 500 MG PO QID for 9 Days, #36 TAB Prov: Alyce Zapien PA-C 12/15/16 Referrals No Doctor, Assigned (PCP) Patient Instructions My [facility] Additional Instructions You have been treated in the Emergency Department for Dental Pain. You were prescribed penicillin to be taken 4 times daily as prescribed. This is an antibiotic. All antibiotics have the potential to cause diarrhea. Stop this medication and contact a medical provider if you were to develop any significant adverse side effects including: wheezing, shortness of breath, passing out, vomiting, or a diffuse rash. Always take antibiotics as directed and COMPLETE the ENTIRE course regardless of the improvement of your symptoms. For pain control, you can use the following flgt-eoe-rshgiuh medicines (if >12 yo): - Regular strength (325mg/tab) Tylenol (acetaminophen) 2 tabs every 4-6 hours as needed. Do not exceed 12 tablets in a 24 hour period. Avoid taking more than 4 grams (4000 mg) of Tylenol per day. This includes any other sources of acetaminophen you may take on a regular basis. - Regular strength (200 mg/tab) Advil (ibuprofen) 1-2 tabs every 4-6 hours as needed. Do not exceed a dose of 3200 mg per day. Refrain from smoking cigarettes or using chewing tobacco until you have been evaluated by your dentist. Keeping beverages lukewarm and consuming soft foods can decrease your pain. Warm compresses over the affected area may offer some relief. You MUST seek evaluation of your dental pain by a dentist following your visit to the Emergency Department. The Emergency Department is not capable of treating dental issues long-term. You should call your dentist as soon as possible to make an appointment for evaluation of your dental pain. Return to the emergency department if you develop the following symptoms despite treatment course outlined above: fever, intractable pain, increased redness, swelling, or purulent discharge.
[2016-12-15 20:25] VITALS: BP 119/85; PULSE 76; O2SAT 95
[2016-12-15] MEDS ORDERED: DICL50TA3 PO (22:36)
[2016-12-15] MEDS ORDERED: ALBINS/ INH (22:36)
[2016-12-15] MEDS ORDERED: DIPH25TA2 PO (22:47)
[2016-12-15] MEDS ORDERED: IPRA1AER2 INH (22:47)
== END 2016-12-15 20:25 | disposition home or self-care (01) ==
LOC: C.EDB 18:56 → C.EDD 20:25
DX: K08.89 Other specified disorders of teeth and supporting structures (principal); J45.909 Unspecified asthma, uncomplicated; F90.9 Attention-deficit hyperactivity disorder, unspecified type; Z79.899 Other long term (current) drug therapy

== ENCOUNTER 2017-03-08 21:57 | Emergency (ER) | payer OTHER ==
[~2017-03-08] VITALS: Ht 162.6 cm; Wt 52.5 kg
[~2017-03-08 21:57] MED LIST changes: +ALBINS/ INH; -ATOM40CA5 PO; +DICL50TA3 PO; +DIPH25TA2 PO; -DSY/150 PO; +ESCI1TAB9 PO; +IPRA1AER2 INH; -OXYC1TAB3 PO; -PENI-82 PO; -SERT50TA PO; -VENL37.593 PO; -VLT/50 PO
[2017-03-08 21:58] VITALS: TEMP 36.8
[2017-03-08] MEDS ORDERED: KETOROLAC TROMETHAMINE 30 MG/ML VIAL IV STA (22:15)
[2017-03-08 22:18] VITALS: Ht 162.6 cm; Wt 52.5 kg
[2017-03-08 22:31] VITALS: O2SAT 98
[2017-03-08 22:39] LABS: BASO % 0.4 %; BASO ABS # 0.04 K/uL (0-0.2); COMPLETE YES; EOS % 0.8 %; HEMATOCRIT 42.9 % (37-47); IG% 0.1 %; LYMPH % 27.8 %; MEAN CELL VOLUME 92.3 fL (80-100); MEAN CORPUSCULAR HEMOGLOBIN 32.7 pg (25-34); MEAN CORPUSCULAR HGB CONC 35.4 g/dl (32-36); MEAN PLATELET VOLUME 10.9 fL (7.4-10.4); MONO % 8.1 %; NEUT % 62.8 %; PLATELET COUNT 265 K/uL (130-400); RED BLOOD COUNT 4.65 M/uL (4.2-5.4); WHITE BLOOD COUNT 9.71 K/uL (4.8-10.8)
[2017-03-08 22:49] LABS: PREG INTERNAL NEGATIVE QC NEG CLEAR BACKGROUND; PREG INTERNAL POSITIVE QC POS CONTROL LINE
[2017-03-08 22:51] LABS: POINT OF CARE TROPONIN I < 0.030 ng/ml (0-0.045)
[2017-03-08 22:55] LABS: BUN/CREATININE RATIO 10.2 (10-20); CALCIUM 9.4 mg/dl (8.5-10.1); CREATININE 0.82 mg/dl (0.60-1.20); POTASSIUM 3.6 mmol/L (3.5-5.1)
--- NOTE | 2017-03-08 22:57 | DIAGNOSTIC IMAGING REPORT ---
ULTRASOUND RIGHT LOWER EXTREMITY VENOUS CLINICAL HISTORY: Right lower extremity edema. Foot pain. COMPARISON STUDY: No priors. TECHNIQUE: Real-time, grayscale, and color Doppler sonography of the deep veins of the right lower extremity was performed from the inguinal crease to the calf. Compression and augmentation were utilized. FINDINGS: There is no sonographic evidence of deep venous thrombosis identified in the right lower extremity. The common femoral, superficial femoral, and popliteal veins are patent and normally compressible. The greater saphenous vein and the profunda femoris vein at the junction with the common femoral vein are clear. The visualized calf veins are patent. IMPRESSION: There is no sonographic evidence of deep venous thrombosis identified in the right lower extremity. Electronically signed by: Mk Person M.D. 03/08/2017 10:55 PM Dictated Date/Time: 03/08/2017 10:55 PM
[2017-03-08 22:58] LABS: ALB/GLOB RATIO 1.5 (0.9-2)
[2017-03-08 23:09] VITALS: BP 109/71; PULSE 65; O2SAT 98
--- NOTE | 2017-03-09 03:51 | EMERGENCY ROOM VISIT NOTE ---
History First contact with patient: 22:09 Chief Complaint: FOOT PAIN Stated Complaint: R FOOT PAIN History of Present Illness The patient is a 27 year old female who presents to the Emergency Room with complaints of ongoing chest pain for the past few months is been worked up by the family care doctor and had a negative ultrasound the gallbladder who now has right foot pain and swelling for the past few days. Patient does smoke. Her mother recently from heart disease. Patient describes chest pain as aching, ranging in severity 5 at 10 throughout the chest. Nothing makes it better or worse. Patient denies dyspnea, abdominal pain, fever, chills, back pain. No injury to the area. No prior heart disease or blood clots. Review of Systems See HPI for pertinent positives & negatives. A total of 10 systems reviewed and were otherwise negative. Past Medical/Surgical History Medical Problems: (1) ADHD (attention deficit hyperactivity disorder) (2) Asthma (3) SOB (shortness of breath) Surgical Problems: (1) No pertinent past surgical history Family History Glaucoma Social History Smoking Status: Current Every Day Smoker Alcohol Use: none Drug Use: none Marital Status: single Housing Status: lives with friends Occupation Status: unemployed Current/Historical Medications Scheduled Diphenhydramine Hcl (Allergy Relief), 25 MG PO DAILY Scheduled PRN Albuterol Sulf (Proventil 0.083% 2.5MG/3ML), 2.5 MG INH Q4H PRN for Wheezing Ipratropium-Albuterol (Combivent Respimat), 2 PUFFS INH QID PRN for SOB/Wheezing Physical Exam Vital Signs Date Time Temp Pulse Resp B/P (MAP) Pulse Ox O2 Delivery O2 Flow Rate FiO2 03/08/17 23:09 65 16 109/71 98 Room Air 03/08/17 23:07 67 03/08/17 22:31 98 Room Air 03/08/17 21:58 36.8 80 16 129/81 98 Room Air Physical Exam VITALS: Vitals are noted on the nurse's note and reviewed by myself. Vital signs stable. GENERAL: White female tobacco odor, in no acute distress, nondiaphoretic, well- developed well-nourished. SKIN: The skin was without rashes, erythema, edema, or bruising. There is no tenting of the skin. Capillary reflex less than 2 seconds. HEAD: Normocephalic atraumatic. EARS: External auditory canals clear, tympanic membranes pearly crocker without erythema or effusion bilaterally. EYES: Pupils equal round and reactive to light and accommodation. Conjunctivae without injection, sclerae without icterus. Extraocular movements intact. NOSE: Patent, turbinates without inflammation or discharge. MOUTH: Mucous membranes moist. Pharynx without erythema or exudate. Uvula midline. Airway patent. Tongue does not deviate. NECK: Supple without nuchal rigidity. No lymphadenopathy. No thyromegaly. Cervical spine is nontender. No JVD. HEART: Regular rate and rhythm without murmurs gallops or rubs. Chest nontender to palpation LUNGS: Clear to auscultation bilaterally without wheezes, rales or rhonchi. No dullness to percussion. No retractions or accessory muscle use. ABDOMEN: Positive bowel sounds x 4. Normal tympanic percussion. Soft, nontender, without masses or organomegaly. Coe sign negative. No guarding or rebound tenderness. MUSCULOSKELETAL: No muscle atrophy, erythema, or edema noted. Right foot minimally tender to palpation. Pedal pulses +2 equal present bilaterally. Negative Homans sign bilaterally NEURO: Patient was alert and oriented to person place and time. Normal sensation to light and sharp touch. No focal neurological deficits. Medical Decision & Procedures Laboratory Results 03/08/17 22:30 Red Blood Count 4.65, Mean Corpuscular Volume 92.3, Mean Corpuscular Hemoglobin 32.7, Mean Corpuscular Hemoglobin Concent 35.4, Mean Platelet Volume 10.9, Neutrophils (%) (Auto) 62.8, Lymphocytes (%) (Auto) 27.8, Monocytes (%) (Auto) 8.1, Eosinophils (%) (Auto) 0.8, Basophils (%) (Auto) 0.4, Neutrophils # (Auto) 6.09, Lymphocytes # (Auto) 2.70, Monocytes # (Auto) 0.79, Eosinophils # (Auto) 0.08, Basophils # (Auto) 0.04 03/08/17 22:30 Test 03/08/17 22:30 03/08/17 22:31 White Blood Count 9.71 K/uL (4.8-10.8) Red Blood Count 4.65 M/uL (4.2-5.4) Hemoglobin 15.2 g/dL (12.0-16.0) Hematocrit 42.9 % (37-47) Mean Corpuscular Volume 92.3 fL (80-100) Mean Corpuscular Hemoglobin 32.7 pg (25-34) Mean Corpuscular Hemoglobin Concent 35.4 g/dl (32-36) Platelet Count 265 K/uL (130-400) Mean Platelet Volume 10.9 fL (7.4-10.4) Neutrophils (%) (Auto) 62.8 % Lymphocytes (%) (Auto) 27.8 % Monocytes (%) (Auto) 8.1 % Eosinophils (%) (Auto) 0.8 % Basophils (%) (Auto) 0.4 % Neutrophils # (Auto) 6.09 K/uL (1.4-6.5) Lymphocytes # (Auto) 2.70 K/uL (1.2-3.4) Monocytes # (Auto) 0.79 K/uL (0.11-0.59) Eosinophils # (Auto) 0.08 K/uL (0-0.5) Basophils # (Auto) 0.04 K/uL (0-0.2) RDW Standard Deviation 43.9 fL (36.4-46.3) RDW Coefficient of Variation 13.1 % (11.5-14.5) Immature Granulocyte % (Auto) 0.1 % Immature Granulocyte # (Auto) 0.01 K/uL (0.00-0.02) Anion Gap 5.0 mmol/L (3-11) Est Creatinine Clear Calc Drug Dose 86.2 ml/min Estimated GFR () 114.5 Estimated GFR (Non- 98.8 BUN/Creatinine Ratio 10.2 (10-20) Calcium Level 9.4 mg/dl (8.5-10.1) Total Bilirubin 0.4 mg/dl (0.2-1) Aspartate Amino Transf (AST/SGOT) 7 U/L (15-37) Alanine Aminotransferase (ALT/SGPT) 16 U/L (12-78) Alkaline Phosphatase 47 U/L (45-117) Total Protein 8.5 gm/dl (6.4-8.2) Albumin 5.1 gm/dl (3.4-5.0) Globulin 3.4 gm/dl (2.5-4.0) Albumin/Globulin Ratio 1.5 (0.9-2) Lipase 142 U/L (73-393) Human Chorionic Gonadotropin, Qual NEG (NEG) Bedside D-Dimer 160 ng/mlFEU (0-450) Bedside Troponin I < 0.030 ng/ml (0-0.045) Medications Administered Medications (Trade) Dose Ordered Sig/Tom Route Start Time Stop Time Status Last Admin Dose Admin Ketorolac Tromethamine (Toradol Inj) 30 mg NOW STAT IV 03/08/17 22:15 03/08/17 22:17 DC 03/08/17 22:27 30 MG ED Course Prior records/ancillary studies reviewed. Triage Nursing notes reviewed. Additional history obtained from family. The patient's history was concerning for chest pain. Differential diagnosis: Etiologies such as cardiac ischemia, aortic dissection, pulmonary embolism, pneumonia, pneumothorax, musculoskeletal, infections, pericarditis, myocarditis , esophageal rupture, gastrointestinal, as well as others were entertained. Physical examination: As above. ER treatment provided: Toradol On reassessment the patient felt better. Diagnostic interpretation by me: The electrocardiogram was negative for pathologic change. Normal sinus, normal intervals, no acute ST-T wave changes, rate of 58. Poor baseline. Impression sinus bradycardia interpreted by myself The labs revealed negative troponin. Negative d-dimer Imaging studies: Chest x-ray with no acute consolidation, pneumothorax or free air per my interpretation Foot x-ray with no fracture, dislocation or effusion my interpretation Ultrasound negative for DVT per radiology Exam and history seem consistent with chest pain with unclear etiology. This could be costochondritis. Her symptoms were present for several months now. Patient had a negative troponin. Normal EKG. Negative d-dimer. Normal ultrasound. She is advised to follow-up family care in a few days for ongoing symptoms or here in the ER sooner for chest pain, diaphoresis, worsening signs or symptoms or as needed. Patient was requesting something stronger for pain. I informed her that is chronic in nature and she should take NSAIDs. By the evaluation outlined above emergent etiologies such as cardiac ischemia, aortic dissection, pulmonary embolism, pneumonia, pneumothorax, infections, pericarditis, myocarditis, gastrointestinal, as well as others were deemed relatively unlikely. The pt informed about the findings as listed above. All questions were answered and pleased with the treatment. Return instructions were outlined and the patient was discharged in stable condition. Referral: The patient was referred back to primary care physician for follow-up in 2 to 3 days for a recheck of the current condition. Case reviewed with my attending The chart was completed utilizing [employer] Speech voice recognition software. Grammatical errors, random word insertions, pronoun errors, and incomplete sentences are an occassional consequence of this system due to software limitations, ambient noise, and hardware issues. Any formal questions or concerns about the content, text, or information contained within the body of this dictation should be directly addressed to the physician assistant floor covering printer for clarification. Medical Decision As above Medication Reconcilliation Current Medication List: was personally reviewed by me Blood Pressure Screening Patient's blood pressure: Normal blood pressure Impression Primary Impression: Pain of right lower leg Additional Impression: Costochondritis Departure Information Dispostion Home / Self-Care Condition GOOD Forms HOME CARE DOCUMENTATION FORM, IMPORTANT VISIT INFORMATION Patient Instructions My [facility], ED Chest Pain NonCardiac Additional Instructions Ibuprofen(Motrin, Advil) may be used for fever or pain. Use 600mg every six hours as needed. Take with food. Avoid using more than 2400mg in a 24 hour period. Do not use 2400mg per day for more than three consecutive days without physician direction. Prolonged inappropriate use can lead to stomach upset or ulcers. Rest and drink plenty of fluids as tolerated. Continue current medications. Avoid strenuous activities and anything that worsens your pain. Resume normal activities once your symptoms resolve. Return to the ER immediately for worsening or persistent chest pain, abdominal pain, vomiting, fevers, chest pains, difficulty breathing, worsening of your condition, or as needed. Follow up with your primary physician in 2-3 days for a recheck of your current condition. Problem Qualifiers
--- NOTE | 2017-03-09 06:38 | DIAGNOSTIC IMAGING REPORT ---
R FOOT MIN 3 VIEWS ROUTINE CLINICAL HISTORY: Right foot pain COMPARISON: None. DISCUSSION: No fractures or dislocations are visualized. There are no erosive or destructive changes. IMPRESSION: Unremarkable conventional radiographic evaluation of the right foot. Electronically signed by: Wilder Mccarthy M.D. 03/09/2017 6:36 AM Dictated Date/Time: 03/09/2017 6:36 AM
--- NOTE | 2017-03-09 06:42 | DIAGNOSTIC IMAGING REPORT ---
CHEST 2 VIEWS ROUTINE CLINICAL HISTORY: 27 years-old Female presenting with CP/cough. TECHNIQUE: PA and lateral views of the chest were obtained. COMPARISON: 10/04/2016. FINDINGS: Cardiomediastinal silhouette normal. Lungs and pleural spaces clear. Osseous structures normal. Upper abdomen normal. IMPRESSION: 1. No acute cardiopulmonary disease. Electronically signed by: Jose Tucker M.D. 03/09/2017 6:40 AM Dictated Date/Time: 03/09/2017 6:40 AM
== END 2017-03-08 23:37 | disposition home or self-care (01) ==
LOC: C.EDB 21:57 → C.EDC 23:37
DX: M94.0 Chondrocostal junction syndrome [Tietze] (principal); M79.661 Pain in right lower leg; F90.9 Attention-deficit hyperactivity disorder, unspecified type; J45.909 Unspecified asthma, uncomplicated; F17.200 Nicotine dependence, unspecified, uncomplicated; Z83.511 Family history of glaucoma

== ENCOUNTER 2017-11-20 14:25 | Emergency (ER) | payer OTHER ==
[~2017-11-20] VITALS: Ht 162.6 cm; Wt 52.7 kg
[~2017-11-20 14:25] MED LIST changes: -DICL50TA3 PO; -ESCI1TAB9 PO
[2017-11-20 14:44] VITALS: TEMP 36.8; Ht 162.6 cm; Wt 52.7 kg
[2017-11-20] MEDS ORDERED: MoRPHine SULFATE 4 MG/ML 1 ML CARP\\VIAL IV PRN (15:00)
--- NOTE | 2017-11-20 15:05 | EMERGENCY ROOM VISIT NOTE ---
History First contact with patient: 14:48 Chief Complaint: ABDOMINAL PAIN Stated Complaint: SURGERY GALLBLADDER HAVING PAIN Nursing Triage Summary: Patient states "I had my gallbladder taken out on Wednesday. I still having problems. It really hurts when I breath." History of Present Illness The patient is a 27 year old female who presents to the Emergency Room with complaints of right upper abdominal pain that is worse with deep inspiration. It feels like a sharp, stabbing sensation. The patient had her gallbladder removed laparoscopically 5 days ago in the outpatient setting. There were no complications reported. The pain has been fairly steady since. She has been taking Percocet with moderate pain relief. The patient contacted the office. They told her to double up on her Percocet, but now she is out of the medication. She denies any shortness of breath. No fever. She has had a mildly productive cough. She denies any leg pain. No nausea or vomiting. She is having regular bowel movements. She is eating small meals at a time. Review of Systems 10 system review performed and negative unless noted in HPI or below Past Medical/Surgical History Medical Problems: (1) ADHD (attention deficit hyperactivity disorder) (2) Asthma (3) SOB (shortness of breath) Surgical Problems: (1) No pertinent past surgical history Family History Glaucoma Social History Smoking Status: Current Every Day Smoker Alcohol Use: none Drug Use: none Marital Status: single Housing Status: lives with friends Occupation Status: unemployed Current/Historical Medications Scheduled Fluticasone Propionate (Flovent Hfa), 2 PUFFS INH BID Fluticasone Propionate (Nasal) (Flonase Allergy Relief), 2 SPRAYS DESTINEE DAILY Ipratropium-Albuterol (Combivent Respimat), 1 PUFFS INH QID Magnesium Oxide (Mag-Ox), 400 MG PO HS Montelukast Sodium (Singulair), 10 MG PO DAILY Omeprazole (Prilosec), 20 MG PO QAM Scheduled PRN Oxycodone/Acetaminophen 5MG/325MG (Percocet 5MG/325MG), 1 TAB PO Q4H PRN for Pain Physical Exam Vital Signs Date Time Temp Pulse Resp B/P (MAP) Pulse Ox O2 Delivery O2 Flow Rate FiO2 11/20/17 16:55 68 18 109/67 99 Room Air 11/20/17 14:44 36.8 87 18 136/84 97 Room Air Physical Exam VITALS: Vitals are noted on the nurse's note and reviewed by myself. Vital signs stable. GENERAL: 27-year-old female, in no acute distress, nondiaphoretic, well- developed well-nourished. SKIN: Multiple, small, well-healing incisions noted on the abdomen HEAD: Normocephalic atraumatic. EYES: Conjunctivae without injection, sclerae without icterus. Extraocular movements intact. MOUTH: Mucous membranes fairly moist NECK: Supple without nuchal rigidity. No JVD. HEART: Regular rate and rhythm without murmurs gallops or rubs. LUNGS: Clear to auscultation bilaterally without wheezes, rales or rhonchi. No accessory muscle use. ABDOMEN: Bowel sounds present, but hypoactive. Well-healing incisions as noted above. No dehiscence noted. Tenderness to palpation in the right upper quadrant. No guarding or rebound tenderness. The abdomen is soft. MUSCULOSKELETAL: No muscle atrophy, erythema, or edema noted. Full range of motion in all extremities. No tenderness to palpation. Strength 5/5 throughout. NEURO: Patient was alert and oriented to person place and time. Normal sensation to touch. No focal neurological deficits. Medical Decision & Procedures ER Provider Diagnostic Interpretation: Chest x-ray IMPRESSION: 1. No active disease in the chest 2. Tiny amount of free intraperitoneal air. Electronically signed by: Wilder Mccarthy M.D. 11/20/2017 4:04 PM Dictated Date/Time: 11/20/2017 4:03 PM The status of this report is Signed. Laboratory Results 11/20/17 15:05 Red Blood Count 4.77, Mean Corpuscular Volume 92.9, Mean Corpuscular Hemoglobin 32.3, Mean Corpuscular Hemoglobin Concent 34.8, Mean Platelet Volume 10.3, Neutrophils (%) (Auto) 62.6, Lymphocytes (%) (Auto) 25.4, Monocytes (%) (Auto) 8.7, Eosinophils (%) (Auto) 2.7, Basophils (%) (Auto) 0.5, Neutrophils # (Auto) 4.59, Lymphocytes # (Auto) 1.87, Monocytes # (Auto) 0.64, Eosinophils # (Auto) 0.20, Basophils # (Auto) 0.04 11/20/17 15:05 Test 11/20/17 15:05 White Blood Count 7.35 K/uL (4.8-10.8) Red Blood Count 4.77 M/uL (4.2-5.4) Hemoglobin 15.4 g/dL (12.0-16.0) Hematocrit 44.3 % (37-47) Mean Corpuscular Volume 92.9 fL (80-100) Mean Corpuscular Hemoglobin 32.3 pg (25-34) Mean Corpuscular Hemoglobin Concent 34.8 g/dl (32-36) Platelet Count 318 K/uL (130-400) Mean Platelet Volume 10.3 fL (7.4-10.4) Neutrophils (%) (Auto) 62.6 % Lymphocytes (%) (Auto) 25.4 % Monocytes (%) (Auto) 8.7 % Eosinophils (%) (Auto) 2.7 % Basophils (%) (Auto) 0.5 % Neutrophils # (Auto) 4.59 K/uL (1.4-6.5) Lymphocytes # (Auto) 1.87 K/uL (1.2-3.4) Monocytes # (Auto) 0.64 K/uL (0.11-0.59) Eosinophils # (Auto) 0.20 K/uL (0-0.5) Basophils # (Auto) 0.04 K/uL (0-0.2) RDW Standard Deviation 43.3 fL (36.4-46.3) RDW Coefficient of Variation 12.7 % (11.5-14.5) Immature Granulocyte % (Auto) 0.1 % Immature Granulocyte # (Auto) 0.01 K/uL (0.00-0.02) Anion Gap 9.0 mmol/L (3-11) Est Creatinine Clear Calc Drug Dose 81.5 ml/min Estimated GFR () 106.6 Estimated GFR (Non- 91.9 BUN/Creatinine Ratio 12.1 (10-20) Calcium Level 10.2 mg/dl (8.5-10.1) Total Bilirubin 0.3 mg/dl (0.2-1) Aspartate Amino Transf (AST/SGOT) 11 U/L (15-37) Alanine Aminotransferase (ALT/SGPT) 33 U/L (12-78) Alkaline Phosphatase 44 U/L (45-117) Total Protein 8.5 gm/dl (6.4-8.2) Albumin 4.8 gm/dl (3.4-5.0) Globulin 3.7 gm/dl (2.5-4.0) Albumin/Globulin Ratio 1.3 (0.9-2) Lipase 132 U/L (73-393) ED Course Patient was seen and examined Vital signs including blood pressure were reviewed medications list was verified with patient Labs were obtained, and a saline lock was established The patient was ordered morphine Imaging was performed and reviewed Upon reevaluation, the patient was more comfortable. We discussed her workup. She voiced understanding, was comfortable being discharged home. The patient was also seen and examined by my supervising physician who is in agreement with my plan. I reviewed discharge instructions the patient. They voiced understanding and had no further questions. Medical Decision Differential diagnosis: Postoperative pain, dehiscence, postoperative bleeding, infection such as abdominal infection, bile leak, pneumonia, pulmonary embolus among others were entertained This patient is a 27-year-old female presents to the emergency department with ongoing right upper quadrant abdominal pain since having her gallbladder removed laparoscopically 5 days ago. On exam, she was nontoxic in appearance. Afebrile. She has some tenderness in the right upper quadrant. Otherwise, her abdomen exam was benign. She did not have any infectious complaints. A chest x -ray was performed. No pneumonia was noted. Her LFTs are within normal limits in addition to her lipase and CBC. I believe this is likely just postoperative pain. She was given a short prescription for narcotics to get her through the weekend. I encouraged her to follow-up as soon as possible with her surgeon. She voiced understanding. She was also cautioned on signs for which to return to the emergency department. This chart was completed in part utilizing [employer] Speech Voice Recognition software. Attempts were made to minimize the grammatical errors, random word insertions, pronoun errors and incomplete sentences. Any formal questions or concerns about the content, text or information contained within the body of this dictation should be directly addressed to the provider for clarification. Medication Reconcilliation Current Medication List: was personally reviewed by me Blood Pressure Screening Patient's blood pressure: Elevated blood pressure Blood pressure disposition: Did not require urgent referral Impression Primary Impression: Postoperative abdominal pain Departure Information Dispostion Home / Self-Care Condition GOOD Prescriptions Oxycodone/Acetaminophen 5MG/325MG (PERCOCET 5MG/325MG) Tab 1 TAB PO Q4H Y for Pain, #12 TAB For Initial Treatment Prov: Emma Sutton PA-C 11/20/17 Referrals No Doctor, Assigned (PCP) Patient Instructions My [facility] Additional Instructions You have been evaluated in the emergency department for abdominal pain. There were no significant abnormalities in your blood work or x-ray today. Please continue current medications as prescribed Percocet 1-2 tabs every 4 hours for severe pain. Do not drink alcohol or drive while taking this medication. This may be taken with ibuprofen, but avoid Tylenol. Continue small meals as instructed by your surgeon Please follow-up with your surgeon as soon as possible. Call Wednesday morning for a follow-up appointment. Do not hesitate to return to the emergency department with any new, worsening or concerning symptoms; especially, shortness of breath, worsening pain, persistent vomiting or fever It was a pleasure participating in your care today
[2017-11-20 15:22] LABS: BASO % 0.5 %; BASO ABS # 0.04 K/uL (0-0.2); EOS % 2.7 %; HEMATOCRIT 44.3 % (37-47); HEMOGLOBIN 15.4 g/dL (12.0-16.0); IG# 0.01 K/uL (0.00-0.02); LYMPH % 25.4 %; LYMPH ABS # 1.87 K/uL (1.2-3.4); MEAN CELL VOLUME 92.9 fL (80-100); MEAN CORPUSCULAR HEMOGLOBIN 32.3 pg (25-34); MEAN CORPUSCULAR HGB CONC 34.8 g/dl (32-36); MEAN PLATELET VOLUME 10.3 fL (7.4-10.4); MONO % 8.7 %; MONO ABS # 0.64 K/uL (0.11-0.59); NEUT % 62.6 %; NEUT ABS # 4.59 K/uL (1.4-6.5); PLATELET COUNT 318 K/uL (130-400); RED CELL DISTRIBUTION WIDTH CV 12.7 % (11.5-14.5); RED CELL DISTRIBUTION WIDTH SD 43.3 fL (36.4-46.3); WHITE BLOOD COUNT 7.35 K/uL (4.8-10.8)
[2017-11-20] MEDS ORDERED: OPTIRAY 320 IV PRN (15:30)
[2017-11-20 15:40] LABS: ALBUMIN 4.8 gm/dl (3.4-5.0); CALCIUM 10.2 mg/dl (8.5-10.1); CREATININE 0.87 mg/dl (0.60-1.20); POTASSIUM 4.2 mmol/L (3.5-5.1); TOTAL PROTEIN 8.5 gm/dl (6.4-8.2)
--- NOTE | 2017-11-20 16:05 | DIAGNOSTIC IMAGING REPORT ---
CHEST 2 VIEWS ROUTINE CLINICAL HISTORY: Cough, chest pain with inspiration. Recent gallbladder surgery. COMPARISON STUDY: 03/08/2017 FINDINGS: The cardiac and mediastinal contours are normal. There is no evidence of focal pulmonary consolidation. There is no evidence of failure. No pleural effusions are visualized.[ No pneumothorax is visualized. There is a sliver of free intraperitoneal air. There are surgical clips in the right upper quadrant consistent with a prior cholecystectomy. IMPRESSION: 1. No active disease in the chest 2. Tiny amount of free intraperitoneal air. Electronically signed by: Wilder Mccarthy M.D. 11/20/2017 4:04 PM Dictated Date/Time: 11/20/2017 4:03 PM
--- NOTE | 2017-11-20 16:25 | EMERGENCY ROOM VISIT NOTE ---
ED Visit Note First contact with patient: 14:48 Patient was seen by our PA/[employer]PA[employer]. I was involved in the patient's care and did evaluate the patient myself. I was involved in the care throughout the ER stay. Patient presents with pain after gallbladder surgery. Her laboratory workup is unrevealing. She is not toxic or febrile. There is no peritonitis. Her wounds are healing without signs of infection. The pain seems to be postsurgical. I do think she can be discharged with good outpatient follow-up. She can return if worsening.
[2017-11-20] MEDS ORDERED: FLVHFA110 INH ×2 (16:29→16:53)
[2017-11-20] MEDS ORDERED: IPRA1AER2 INH ×2 (16:31→16:48)
[2017-11-20] MEDS ORDERED: MAGN400T6 PO ×2 (16:38→16:55)
[2017-11-20] MEDS ORDERED: FLUT0.15 NAE ×2 (16:40→16:49)
[2017-11-20] MEDS ORDERED: MONT1TAB3 PO ×2 (16:41→16:51)
[2017-11-20] MEDS ORDERED: PRLSR20 PO ×2 (16:42→16:52)
[2017-11-20 16:55] VITALS: BP 109/67; PULSE 68; O2SAT 99
[2017-11-20] MEDS ORDERED: OXYC-57 PO (16:59)
== END 2017-11-20 17:20 | disposition home or self-care (01) ==
LOC: C.EDB 14:26 → C.EDC 17:20
DX: G89.18 Other acute postprocedural pain (principal); R10.11 Right upper quadrant pain; J45.909 Unspecified asthma, uncomplicated; F17.200 Nicotine dependence, unspecified, uncomplicated; Z90.49 Acquired absence of other specified parts of digestive tract; Z79.51 Long term (current) use of inhaled steroids; Z79.899 Other long term (current) drug therapy